=== PATIENT | male | born 1985 ===

== ENCOUNTER 2018-06-21 02:11 | Inpatient (IN) | payer OTHER ==
[2018-06-21 02:15] VITALS: BMI 31.1
--- NOTE | 2018-06-21 02:26 | ED PDOC ---
Arrival/HPI - General Time Seen by Provider: 06/21/18 02:18 Historian: Patient - History of Present Illness Narrative History of Present Illness (Text): 06/21/18 02:25 Jorden Devine is a 32 year old male, with no significant past medical history, who presents to the emergency department complaining of right-sided chest pain. Patient states he has been experiencing pinching right-sided chest pain tonight, worsened with deep inspiration and movement. Patient denies any fever, chills, shortness of breath, abdominal pain, nausea, vomiting, diarrhea, urinary symptoms, back pain, neck pain, headache, dizziness, or any other complaints. Symptom Onset: Gradual Symptom Course: Unchanged Activities at Onset: Light Context: Home Past Medical History - Provider Review Nursing Documentation Reviewed: Yes Family/Social History - Physician Review Nursing Documentation Reviewed: Yes Family/Social History: Unknown Family HX Allergies/Home Meds Allergies/Adverse Reactions: Allergies No Known Allergies Allergy (Verified 06/21/18 02:15) Home Medications: Home Meds Medication Instructions Recorded Confirmed RX: No Known Home Med 06/21/18 06/21/18 Review of Systems - Physician Review All systems were reviewed & negative as marked: Yes - Review of Systems Constitutional: Normal. absent: Fevers Eyes: Normal ENT: Normal Respiratory: Normal. absent: SOB, Cough Cardiovascular: Chest Pain Gastrointestinal: Normal. absent: Abdominal Pain, Diarrhea, Nausea, Vomiting Genitourinary Male: Normal. absent: Dysuria, Frequency, Hematuria, Urinary Output Changes Musculoskeletal: Normal. absent: Back Pain, Neck Pain Skin: Normal. absent: Rash Neurological: Normal. absent: Headache, Dizziness Endocrine: Normal Hemo/Lymphatic: Normal Psychiatric: Normal Physical Exam Vital Signs Reviewed: Yes Temperature: Afebrile Blood Pressure: Normal Pulse: Regular Respiratory Rate: Normal Appearance: Positive for: Well-Appearing, Non-Toxic, Comfortable Pain Distress: None Mental Status: Positive for: Alert and Oriented X 3 - Systems Exam Head: Present: Atraumatic, Normocephalic Pupils: Present: PERRL Extroacular Muscles: Present: EOMI Conjunctiva: Present: Normal Mouth: Present: Moist Mucous Membranes Neck: Present: Normal Range of Motion Respiratory/Chest: Present: Clear to Auscultation, Good Air Exchange. No: Respiratory Distress, Accessory Muscle Use Cardiovascular: Present: Regular Rate and Rhythm, Normal S1, S2. No: Murmurs Abdomen: No: Tenderness, Distention, Peritoneal Signs Back: Present: Normal Inspection Upper Extremity: Present: Normal Inspection. No: Cyanosis, Edema Lower Extremity: Present: Normal Inspection. No: Edema Neurological: Present: GCS=15, CN II-XII Intact, Speech Normal Skin: Present: Warm, Dry, Normal Color. No: Rashes Psychiatric: Present: Alert, Oriented x 3, Normal Insight, Normal Concentration Medical Decision Making ED Course and Treatment: 06/21/18 02:26 Impression: 32 year old male complaining of right-sided chest pain tonight. Plan: -- EKG -- Chest X-Ray -- Labs, cardiac enzymes -- Urinalysis -- Reassess and disposition Progress Notes: Reviewed EKG, NSR at [address]-segment elevations or depressions, no T-wave inversions, normal intervals. 06/21/18 03:00 Chest X-Ray reviewed, shows no acute processes. 06/21/18 05:00 Labs reviewed, D-dimer: 388. CTA Chest ordered. 06/21/18 07:05 PROCEDURE: CTA OF THE CHEST WITH IV CONTRAST SIGNED ON: 06/21/18 06:39:29AM LIZZY ROBLES M.D. IMPRESSION: No demonstrated pulmonary embolism or arterial dissection. Minimal right pleural effusion. Airspace disease in the right lower lobe. Subsegmental atelectasis and/or developing pneumonia. Look to patient presentation, such as presence or absence of fever and leukoycytosis for confirmation of which is more likely in this particular patient presently, recognizing that both conditions occasionally exist at the same time. [facility]acia will obs for pneumonia - Lab Interpretations I have reviewed the lab results: Yes - RAD Interpretation Etymology Professor: ED Physician - EKG Interpretation Interpreted by ED Physician: Yes Type: 12 lead EKG - Scribe Statement The provider has reviewed the documentation as recorded by the Emaniibcory Sweeney Provider Scribe Attestation: All medical record entries made by the Scribe were at my direction and personally dictated by me. I have reviewed the chart and agree that the record accurately reflects my personal performance of the history, physical exam, medical decision making, and the department course for this patient. I have also personally directed, reviewed, and agree with the discharge instructions and disposition. Disposition/Present on Arrival - Present on Arrival Any Indicators Present on Arrival: No - Disposition Have Diagnosis and Disposition been Completed?: Yes Diagnosis: Pneumonia Disposition: HOSPITALIZED Disposition Time: 06:50 Condition: GOOD
[2018-06-21 03:27] LABS: ALB/GLOB RATIO 1.2 (1.1-1.8); ALBUMIN 4.2 g/dL (3.0-4.8); BASO # 0.02 K/mm3 (0.0-2.0); BASO % 0.2 % (0.0-3.0); BLOOD UREA NITROGEN 13 mg/dL (7-21); CALCIUM 9.1 mg/dL (8.4-10.5); EOS # 0.3 (0.0-0.7); EOS % 2.4 % (1.5-5.0); GFR NON-AFRICAN AMERICAN > 60; GRAN # 6.5 (1.4-6.5); GRAN % 54.2 % (50.0-68.0); HEMOGLOBIN 14.4 g/dL (14.0-18.0); LYMPH # 4.4 (1.2-3.4); LYMPH % 36.4 % (22.0-35.0); MEAN CELL VOLUME 86.5 fl (80.0-105.0); MEAN CORPUSCULAR HEMOGLOBIN 29.8 pg (25.0-35.0); MEAN CORPUSCULAR HGB CONC 34.4 g/dl (31.0-37.0); MEAN PLATELET VOLUME 9.5 fl (7.0-11.0); MONO # 0.8 (0.1-0.6); MONO % 6.8 % (1.0-6.0); RBC 4.83 10^6/uL (3.5-6.1); RED CELL DISTRIBUTION WIDTH 12.8 % (11.5-14.5)
[2018-06-21 03:32] LABS: ALT/SGPT 46 U/L (7-56); AST/SGOT 28 U/L (17-59)
[2018-06-21 03:59] LABS: TROPONIN I < 0.01 ng/mL
[2018-06-21] MEDS ORDERED: Morphine 2 mg/ml ISec IVP STA (05:02)
[2018-06-21] MEDS ORDERED: Iodixanol 320 MG/ML 100 ML BOTTLE IV ONE (05:08)
[2018-06-21 05:14] LABS: PH,URINE 6.5 (4.7-8.0); URINE BILIRUBIN NEGATIVE (NEGATIVE); URINE BLOOD NEGATIVE (NEGATIVE); URINE GLUCOSE (UA) NEGATIVE (NEGATIVE); URINE LEUKOCYTE ESTERASE NEGATIVE Leu/uL (NEGATIVE); URINE PROTEIN NEGATIVE mg/dL (<30 mg/dL); URINE UROBILINOGEN 0.2 E.U./dL (<1 E.U./dL)
[2018-06-21 05:23] LABS: URINE APPEARANCE CLEAR (CLEAR); URINE COLOR YELLOW (YELLOW)
[2018-06-21] MEDS ORDERED: levoFLOXacin 750 mg in D5W 750 MG/150 ML BAG IVPB STA (06:58)
[2018-06-21] MEDS ORDERED: Sodium Chloride 0.9% 1,000 ML IV STA (07:00)
--- NOTE | 2018-06-21 08:48 | RAD ---
HISTORY: sob COMPARISON: No prior. TECHNIQUE: Chest, one view. FINDINGS: LUNGS: No focal consolidation. Please note that chest x-ray has limited sensitivity for the detection of pulmonary masses. PLEURA: No significant pleural effusion identified. No definite pneumothorax . CARDIOVASCULAR: Heart size appears within normal limits. OSSEOUS STRUCTURES: No acute osseous abnormality identified. VISUALIZED UPPER ABDOMEN: Unremarkable. OTHER FINDINGS: None. IMPRESSION: No focal consolidation, significant pleural effusion, or definite pneumothorax identified.
--- NOTE | 2018-06-21 09:00 | CT ---
Date of service: 06/21/2018 PROCEDURE: CT Chest with contrast (Pulmonary Angiogram) HISTORY: chest pain COMPARISON: None available. TECHNIQUE: Axial computed tomography images were obtained of the chest in the pulmonary arterial phase of enhancement. Coronal and sagittal reformatted images were created and reviewed. Intravenous contrast dose: Visipaque 320, 100 cc Radiation dose: Total exam DLP = 579.51 mGy-cm. This CT exam was performed using one or more of the following dose reduction techniques: Automated exposure control, adjustment of the mA and/or kV according to patient size, and/or use of iterative reconstruction technique. FINDINGS: Patient is interval to raise his arms above his head resulting in greater artifact through the chest including the pulmonary arteries. PULMONARY ARTERIES: No definitive pulmonary embolus is appreciated. AORTA: No acute findings. No thoracic aortic aneurysm. LUNGS: Limited bilateral basilar dependent atelectasis. No alveolitis or discrete mass including central airways. PLEURAL SPACES: Unremarkable. No effusion or pneumothorax. HEART: Trace residual thymic tissue is seen in the anterior mediastinal fat. No cardiomegaly. No significant pericardial effusion. LYMPH NODES: No lymphadenopathy. BONES, CHEST WALL: Unremarkable. No fracture or destructive lesion OTHER FINDINGS: Unremarkable. IMPRESSION: Unremarkable CT pulmonary angiogram. No pulmonary embolus. Limited bilateral basilar dependent atelectasis with remainder of the examination appearing unremarkable. Concordant preliminary report from [facility], 06/21/2018.
[2018-06-21] MEDS: Albuterol-Ipratrop 3 mg / 0.5 (3 ml) UD IH SCH ×2 (13:18→19:45)
--- NOTE | 2018-06-21 13:58 | CARD ---
APPROVED REPORT Date of service: 06/21/2018 EKG Measurement Heart [id number] <Conclusion> Normal sinus rhythm RVCD Normal ECG
[2018-06-22] MEDS: Albuterol-Ipratrop 3 mg / 0.5 (3 ml) UD IH SCH ×4 (01:56→20:58)
--- NOTE | 2018-06-22 02:16 | CON ---
DATE: 06/21/2018 PULMONARY CONSULT REFERRING PHYSICIAN: Lorri Beyer MD REASON FOR CONSULTATION: Right-sided pleuritic pain with shortness of breath. HISTORY OF PRESENT ILLNESS: This is a 32-year-old gentleman without any significant past medical history, [place], also drives [employer], comes into emergency room with right-sided pleuritic pain with some shortness of breath. No nausea, no vomiting, no diarrhea. No leg pain or leg swelling. PAST MEDICAL HISTORY: There is no cardiopulmonary disease. ALLERGIES: NONE KNOWN. FAMILY HISTORY: No significant cardiopulmonary disease reported. SOCIAL HISTORY: Denies smoking or alcohol use. MEDICATIONS: He is on DuoNeb every 6 hours, Levaquin 500 mg daily, Pepcid 40 mg daily, Tylenol p.r.n. basis, did receive Levaquin 750 mg in the ER and also morphine 2 mg dose was given. REVIEW OF SYSTEMS: No headache, no rhinitis. Admits to have snoring, daytime sleepy at times. Has right-sided pleuritic pain. Also right upper quadrant some discomfort. No nausea, no vomiting, no diarrhea. No leg pain or leg swelling. PHYSICAL EXAMINATION: GENERAL: In no acute distress. VITAL SIGNS: Temperature is 98, heart rate is 87, respiratory rate is 18, blood pressure 121/74, pulse ox 100% on room air. HEENT: Moist mucous membrane. Crowded airway. Mallampati score is 4. NECK: Supple. No JVD. LUNGS: Have a decreased breath sounds in the right base. HEART: S1, S2. ABDOMEN: Soft, nontender, no organomegaly. EXTREMITIES: No edema. NEUROLOGIC: Awake, alert. Follows simple commands. LABORATORY DATA: Shows hemoglobin 14.4, hematocrit 41.8, WBC 12, platelet is 227. D-dimer was 388. Sodium 144, potassium 3.9, chloride 104, bicarbonate 28, BUN 13, creatinine 0.8, glucose 102, calcium 9.1, magnesium 2. AST 28, ALT 46, alkaline phosphatase is 82. Troponin less than 0.01. Albumin is 4.2. Urinalysis is unremarkable. Had a CAT scan of the chest done in ER showing unremarkable CT pulmonary angiogram. No pulmonary embolus. Limited bilateral pacer, dependent atelectasis where the remainder of the examination appearing unremarkable. Also had EKG done, which showed sinus rhythm at the rate of 75. IMPRESSION AND PLAN: Right lower lobe something happening, atelectasis/pneumonia or pulmonary embolism, though CTA is negative. D-dimer is high. 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 We will get ventilation/perfusion scan. We will get venous Doppler of lower extremity and also order a procalcitonin for the morning. Continue present care. Thank you and we will follow with you. Darby Brizuela MD
[2018-06-22 07:26] LABS: IRON 89 ug/dL (45-180)
[2018-06-22 07:36] LABS: % IRON SATURATION 30 % (20-55); TOTAL IRON BINDING CAPACITY 299 ug/dL (261-462)
[2018-06-22] MEDS: levoFLOXacin 500 mg in D5W 500 MG/100 ML BAG IVPB SCH (09:52)
--- NOTE | 2018-06-22 11:28 | HP ---
Patient was seen and examined on the bedside on 06/21/2018 in his room. CHIEF COMPLAINT: Right-sided chest pain. HISTORY OF PRESENT ILLNESS: Mr. Jorden Devine is a 32-year-old my private patient, no significant past medical history, came to the emergency room complaining of right-sided chest pain. Patient states that he has been experiencing pinching right-sided chest pain throughout night, worsened with deep inspiration and movement. Patient denies any fever or chills. No nausea or vomiting. No headache. No back pain. No hematuria or hematochezia. PAST MEDICAL HISTORY: Nonsignificant. ALLERGIES: THE PATIENT IS NOT ALLERGIC WITH ANY MEDICATIONS. HOME MEDICATIONS: Refused. REVIEW OF SYSTEMS: Patient was seen and examined on the bedside, just having right-sided chest pain. No fever. No chills, nausea, vomiting, or diarrhea. No hematuria. No headache. No dizziness. PHYSICAL EXAMINATION: VITAL SIGNS: Temperature 98.2, pulse 73, blood pressure 110/57, respiratory rate 20. HEENT: Head: Normocephalic, atraumatic. Eyes: PERRLA. Extraocular muscles intact. Conjunctivae clear. Nose patent. Mucous membrane moist. NECK: Supple. No carotid bruit. No JVD or thyromegaly. CHEST: Bilaterally symmetrical. HEART: S1 and S2 positive. LUNGS: Poor air entry. ABDOMEN: Soft. Bowel sounds present. No organomegaly. Tender in the right upper quadrant. Bowel sounds positive. EXTREMITIES: No edema. No cyanosis. NEUROLOGIC: Patient is awake and alert. Follows simple commands. LABORATORY DATA: White blood cells 12, hemoglobin 14.4, hematocrit 41.8, platelets 227. Sodium 140, potassium 3.9, BUN 13, creatinine 0.8, glucose 102. ASSESSMENT AND PLAN: Mr. Jorden Devine is a 32-year-old male with leukocytosis. Urine is negative for infection. Did CAT scan of the chest. Came with shortness of breath and pleuritic chest pain. Unremarkable CAT scan, pulmonary angiogram, no pulmonary embolism, limited bibasilar dependent atelectasis where the remainder of the examination appearing unremarkable. Chest x-ray was reviewed by me. The patient is admitted for bronchitis/pneumonia. No demonstratable embolism or arterial dissection. Minimal right pleural effusion, diffuse in right lower lobe, subsequently atelectasis and/or documented pneumonia, airspace disease in the right lower lobe , We admitted the patient. Pulmonary consult called. Started on intravenous antibiotics. Gastric and deep venous thrombosis prophylaxes. Repeat labs. We will follow up. Lorri Beyer MD MTDD
[2018-06-22 13:00] LABS: FOLATE 16.8 ng/mL
--- NOTE | 2018-06-22 13:22 | NM ---
Date of service: 06/22/2018 COMPARISON: June 21, 2018. CT pulmonary angiogram. TECHNIQUE: 33.1 mCi technetium 99-m DTPA aerosol. 4.2 mCI technetium 99-m MAA administered intravenously. FINDINGS: VENTILATION COMPONENT: Normal.Retention of radionuclide in the tracheobronchial tree and ingestion of radionuclide in the stomach, incidental findings PERFUSION COMPONENT: Heterogeneous distribution of radionuclide. No geographic, segmental, lobar abnormalities apparent on the present examination. IMPRESSION: Lowsign probability ventilation perfusion scan for pulmonary embolism.
[2018-06-22] MEDS: Naproxen 550 mg Tab PO SCH (22:17)
--- NOTE | 2018-06-22 23:05 | PN ---
DATE: 06/22/2018 PULMONARY PROGRESS NOTE REFERRING PHYSICIAN: Lorri Beyer MD SUBJECTIVE: He is lying in the bed with head at 45 degrees. Still has a right-sided pleuritic pain, which is 50% better than yesterday, gets short of breath when exert. No nausea, no vomiting, no diarrhea. No leg pain or leg swelling. OBJECTIVE: GENERAL: In no distress. VITAL SIGNS: Temperature is 98, heart rate is 78, respiratory rate is 18, blood pressure 120/70, pulse ox 97% on room air. HEENT: Moist mucous membrane. Crowded airway. Mallampati score is 4. NECK: Supple. No JVD. LUNGS: Have decreased breath sounds at the bases. HEART: S1 and S2. ABDOMEN: Soft, nontender. No organomegaly. EXTREMITIES: No edema. NEUROLOGIC: Awake, alert. Follows simple commands. MEDICATIONS: He is on albuterol/Atrovent nebulizer every 6 hours, Levaquin 500 mg daily, Pepcid 40 mg daily, Tylenol p.r.n. basis. LABORATORY DATA: Shows yesterday leukocyte count was 12, hemoglobin A1c 5.3, iron is 89. Urine is unremarkable. Blood culture, there is no growth. V/Q scan done today, which shows perfusion part heterogeneous distribution of the radionuclide. Otherwise, no other segmental lobar abnormality noted. So, it was low probability for pulmonary embolism. Venous Doppler study done, results are pending. IMPRESSION AND PLAN: Right-sided pleuritic pain, splinting, has a basilar atelectasis. No sign of pulmonary embolism. Does not look like a pneumonia either. Could have some pleurisy in that area with small infiltrate? clinically is better with continue antibiotics, continue Tylenol, gastric prophylaxis, deep venous thrombosis prophylaxis, out of bed to chair. We will repeat procalcitonin for the morning. Thank you and we will follow with you. Darby Brizuela MD
[2018-06-23] MEDS: Albuterol-Ipratrop 3 mg / 0.5 (3 ml) UD IH SCH ×4 (01:19→21:30)
--- NOTE | 2018-06-23 04:54 | PN ---
DATE: 06/22/2018 SUBJECTIVE: The patient is 32-year-old male. The patient was seen and examined at the bedside on 06/22/2018, looking comfortable. No nausea, vomiting, diarrhea. No hematuria, no hematochezia. No swelling of the leg. No chest pain, no palpitation. Cough is getting better, shortness of breath is getting better, especially chest pain with the inspiration is better. PHYSICAL EXAMINATION: VITAL SIGNS: Temperature 99.2, pulse 81, blood pressure 115/69, respiratory rate 18. HEENT: Head: Normocephalic, atraumatic. Eyes: PERRLA. Extraocular muscles intact. Conjunctivae clear. Nose patent. Mucous membrane moist. NECK: Supple. No carotid bruit. No JVD or thyromegaly. CHEST: Bilaterally symmetrical. HEART: S1, S2 positive. LUNGS: Clear to auscultation. ABDOMEN: Soft. Bowel sounds present. No organomegaly. EXTREMITIES: No edema, no cyanosis. NEUROLOGICAL: The patient is awake, alert, follows simple commands. MEDICATIONS: Naproxen, levofloxacin, Pepcid, Tylenol, DuoNeb. LABORATORY DATA: We do not have CBC today. Hemoglobin A1c is 5.3, iron 89, iron saturation 30, triglycerides 149, B12 of 556, HDL 39, LDL 107. ASSESSMENT AND PLAN: Mr. Jorden Devine is a 32-year-old male with leukocytosis, came with chest pain and shortness of breath, admitted with right lower lobe bronchitis/pneumonia/atelectasis, who had pulmonary emboli. CT scan was negative. D-dimer is high. The patient had just went back from vacation from [place]. Past history of diabetes, ventilation-perfusion scan, did ultrasound of the lower extremities. Lung scan is negative. Lower extremity ultrasound results are pending. Getting antibiotics. Dr. Brizuela gave naproxen. Getting albuterol, levofloxacin, Pepcid and Tylenol. Pain is better. Discussion done with the patient and the patient's brother sitting on the bedside. Gastric and deep venous thrombosis prophylaxes. Repeat labs. We will follow. Lorri Beyer MD
[2018-06-23 08:54] LABS: HEMOGLOBIN 15.2 g/dL (14.0-18.0); MEAN CELL VOLUME 87.4 fl (80.0-105.0); MEAN CORPUSCULAR HEMOGLOBIN 29.6 pg (25.0-35.0); MEAN CORPUSCULAR HGB CONC 33.9 g/dl (31.0-37.0); MEAN PLATELET VOLUME 9.2 fl (7.0-11.0); RBC 5.14 10^6/uL (3.5-6.1); RED CELL DISTRIBUTION WIDTH 12.8 % (11.5-14.5); WHITE BLOOD COUNT 9.4 10^3/ul (4.5-11.0)
[2018-06-23] MEDS: Naproxen 550 mg Tab PO SCH ×2 (09:05→17:35)
[2018-06-23] MEDS: levoFLOXacin 500 mg in D5W 500 MG/100 ML BAG IVPB SCH (09:05)
[2018-06-23 09:18] LABS: BLOOD UREA NITROGEN 13 mg/dL (7-21); CALCIUM 9.4 mg/dL (8.4-10.5); GFR NON-AFRICAN AMERICAN > 60
--- NOTE | 2018-06-23 21:09 | PN ---
DATE: 06/23/2018 REFERRING PHYSICIAN: Lorri Beyer MD SUBJECTIVE: The patient is lying in the bed, head at 45 degrees. Night was unremarkable, feels much better, still has some right-sided pleuritic pain. No nausea, vomiting, diarrhea, leg pain or leg swelling. OBJECTIVE: GENERAL: No acute distress. VITAL SIGNS: Temperature is 98, heart rate 77, respiratory rate is 18, blood pressure 97/65, pulse ox 97% on room air. HEENT: Moist mucous membranes. NECK: Supple. No JVD. LUNGS: Have a fair airflow with rhonchi. HEART: S1,S2. ABDOMEN: Soft, nontender, no organomegaly. EXTREMITIES: No edema. NEUROLOGIC: Awake, alert, follows simple command. MEDICATIONS: He is on naproxen double-strength 550 mg twice a day, DuoNeb every 6 hours, Levaquin 500 mg daily, Pepcid 40 mg daily, Tylenol p.r.n. basis. LABORATORY DATA: Shows hemoglobin 15.2, hematocrit 44.9, WBC 9.4, platelet is 230. Sodium 142, potassium 4.4, chloride 103, bicarbonate 29, BUN 13, creatinine 0.9, glucose is 92, hemoglobin A1c 5.3, calcium is 9.4, procalcitonin less than 0.05. IMPRESSION: Right-sided pleuritic pain splinting with atelectasis, leukocytosis, probably have pneumonia though procalcitonin is negative. Pulmonary embolus workup is unremarkable. Feels better since on antibiotics and leukocytosis improved. We will continue Naprosyn, p.r.n. Tylenol. Continue antibiotics. Discharge planning. Thank you and we will follow with you. Darby Brizuela MD
--- NOTE | 2018-06-24 00:30 | PN ---
DATE: 06/23/2018 SUBJECTIVE: The patient is a 32-year-old male. The patient was seen and examined on the bedside on 06/23/2018, using a nebulizer treatment. According to him, he is feeling better. No nausea, vomiting or diarrhea. No hematuria or hematochezia. No swelling of the leg. Chest pain is better with breathing. No fever, no chills. PHYSICAL EXAMINATION VITAL SIGNS: Temperature 98, pulse 77, blood pressure 97/55, respiratory rate 18. HEENT: Head normocephalic, atraumatic. Eyes: PERRLA. Extraocular muscles intact. Conjunctivae clear. Nose patent. Mucous membrane moist. NECK: Supple. No carotid bruit. No JVD or thyromegaly. CHEST: Bilaterally symmetrical. HEART: S1 and S2 positive. LUNGS: Clear to auscultation. ABDOMEN: Soft. Bowel sounds positive. No organomegaly. EXTREMITIES: No edema. No cyanosis. NEUROLOGICAL: The patient is awake and alert. Moving all 4 extremities. No focal deficits. MEDICATIONS: Naproxen, DuoNeb, Levaquin, Pepcid, Tylenol. LABORATORY DATA: White blood cell 9.4, hemoglobin 15.2, hematocrit 44.9, platelets 230. Sodium 142, potassium 4.4, BUN 15, creatinine 0.9, glucose 92. ASSESSMENT AND PLAN: Mr. Jorden Devine is my private patient with leukocytosis with nonsignificant past medical history, recently has traveled back home, came with right-sided pleuritic pain, splinting, has basilar atelectasis. No signs of pulmonary embolism. Does not look like pneumonia either. Could have some pleurisy in the area with small infiltrate, clinically is better. Continue antibiotics, continue Tylenol. Gastric prophylaxis, deep vein thrombosis prophylaxis, out of bed to chair, physical therapy. Appreciated Dr. Brizuela's input. Repeat labs. We will follow up. Lorri Beyer MD
[2018-06-24] MEDS: Albuterol-Ipratrop 3 mg / 0.5 (3 ml) UD IH SCH ×4 (02:43→20:29)
[2018-06-24] MEDS: levoFLOXacin 500 mg in D5W 500 MG/100 ML BAG IVPB SCH (11:33)
[2018-06-24] MEDS: Naproxen 550 mg Tab PO SCH ×2 (11:33→17:08)
--- NOTE | 2018-06-24 16:31 | US ---
HISTORY: Leg pain and swelling. Evaluate for DVT PHYSICIAN(S): Max Santoro MD. TECHNIQUE: Duplex sonography and color-flow Doppler with graded compression were used to evaluate the deep venous systems of both lower extremities. FINDINGS: The visualized deep venous systems of both lower extremities are sonographically normal and compressible. Normal wave forms and augmentation are seen. There is no sonographic evidence for deep venous thrombosis in the visualized segments of both lower extremities. IMPRESSION: No sonographic evidence for deep venous thrombosis in the visualized segments of both lower extremities.
--- NOTE | 2018-06-24 18:12 | PN ---
DATE: 06/24/2018 PULMONARY PROGRESS NOTE REFERRING PHYSICIAN: Lorri Beyer MD SUBJECTIVE: He is lying in the bed at 45 degree. Night was unremarkable. Still has a right mild pleuritic pain. No fever, no shortness of breath. No leg pain or leg swelling. PHYSICAL EXAMINATION GENERAL: In no acute distress. VITAL SIGNS: Temperature is 98, heart rate 76, respiratory rate is 20, blood pressure 104/62, pulse ox 97% on room air. HEENT: Moist mucous membrane. Crowded airway. Mallampati score is IV. NECK: Supple. No JVD. LUNGS: Have a fair airflow with rhonchi. HEART: S1 and S2. ABDOMEN: Soft, nontender, no organomegaly. EXTREMITIES: No edema. NEUROLOGIC: Awake, alert, follows simple command. MEDICATIONS: He is on Naprosyn 550 mg twice a day, DuoNeb every 6 hours, Levaquin 500 mg daily, Pepcid 40 mg daily, Tylenol p.r.n. basis. LABORATORY DATA: Reviewed and noted. No new lab is available. Microbiology; blood culture has been negative. IMPRESSION AND PLAN: Right-sided pleuritic pain with splinting, atelectasis, leukocytosis, probably have pneumonia, though procalcitonin was negative. Clinically, he is much better, on Naprosyn antibiotics and Pepcid. May discharge him on Levaquin for another 3 days, p.r.n. Naprosyn for 3-4 days. Also, need other pulmonary workup including PFT. Follow up with Dr. Beyer as outpatient. Thank you and we will follow. Darby Brizuela MD
--- NOTE | 2018-06-24 23:07 | PN ---
DATE: 06/24/2018 SUBJECTIVE: The patient was seen and examined on bedside on 06/24/2018. Progress notes are for 06/24/2018. Looking comfortable. Pain is minimum. Night was unremarkable. Only having pleuritic pain with deep breathing. No fever. No chills. No nausea, vomiting, diarrhea. No hematuria or hematochezia. No swelling of the leg. PHYSICAL EXAMINATION: VITAL SIGNS: Temperature 98, heart rate 73, respiratory rate 20, blood pressure 104/64, pulse oximetry 97% on room air. HEENT: Head normocephalic, atraumatic. Eyes PERRLA. Extraocular muscles intact. Conjunctivae clear. Nose patent. Mucous membrane moist. NECK: Supple. No carotid bruit. No JVD or thyromegaly. CHEST: Bilaterally symmetrical. HEART: S1 and S2 positive. LUNGS: Clear to auscultation. ABDOMEN: Soft. Bowel sounds positive. No organomegaly. EXTREMITIES: No edema. No cyanosis. NEUROLOGICAL: The patient is awake and alert. Moving all 4 extremities. No focal deficits. MEDICATIONS: Naproxen, DuoNeb, Levaquin, Pepcid, Tylenol. LABORATORY DATA: We do not have recent labs. ASSESSMENT AND PLAN: Mr. Jorden Devine, 32-year-old male with right-sided pleuritic pain with splinting, atelectasis, leukocytosis, probably has pneumonia, though prolactin was negative clinically. He is much better on naproxen and antibiotics, Pepcid for gastrointestinal prophylaxis. The patient needs more Levaquin. Continue present treatment. Discussion done with the patient. Need as outpatient pulmonary function test. We will follow up. Lorri Beyer MD
[2018-06-25] MEDS: Albuterol-Ipratrop 3 mg / 0.5 (3 ml) UD IH SCH ×4 (05:10→21:09)
[2018-06-25] MEDS: Naproxen 550 mg Tab PO SCH ×2 (11:05→17:51)
[2018-06-25] MEDS: levoFLOXacin 500 mg in D5W 500 MG/100 ML BAG IVPB SCH (11:05)
--- NOTE | 2018-06-26 01:42 | PN ---
DATE: 06/25/2018 PULMONARY PROGRESS NOTE REFERRING PHYSICIAN: Lorri Beyer MD. SUBJECTIVE: He is lying in the bed, head at 45 degrees. Night was unremarkable. Feels better. Decreased cough and pleuritic pain. No nausea, vomiting, diarrhea, leg pain or leg swelling. OBJECTIVE: GENERAL: In no acute distress. VITAL SIGNS: Temperature is 98, heart rate is 78, respiratory rate is 20, blood pressure 114/68, pulse ox 99% on room air. HEENT: Moist mucous membrane. Crowded airway. NECK: Supple. No JVD. LUNGS: Have a fair airflow with rhonchi. HEART: S1 and S2. ABDOMEN: Soft, nontender. No organomegaly. EXTREMITIES: There is no edema. NEUROLOGICAL: Awake and alert. Follows simple command. MEDICATIONS: He is on Naprosyn 550 mg twice a day, DuoNeb every 6 hours, Levaquin 500 mg daily, Pepcid 40 mg daily, Tylenol p.r.n. basis. LABORATORY DATA: Shows no new lab is available since yesterday. IMPRESSION AND PLAN: Pleuritic pain with leukocytosis, probably has a basilar infiltrate, rule out sleep apnea syndrome. Pulmonary point of view, doing okay. Continue nonsteroidals antibiotics, outpatient pulmonary function test. Consider outpatient home sleep study. Thank you and we will follow with you. Darby Brizuela MD
--- NOTE | 2018-06-26 02:35 | PN ---
DATE: 06/25/2018 SUBJECTIVE: The patient is a 32-year-old male. The patient was seen and examined on the bedside on 06/25/2018, looking comfortable. No nausea, vomiting, or diarrhea. No hematuria or hematochezia. No headache. No dizziness. No chest pain. No palpitation. Pain with full inspiration is getting better. No fever, no chills. PHYSICAL EXAMINATION: VITAL SIGNS: Temperature 98.5, pulse 78, blood pressure 114/68, pulse oximetry 99%, respiratory rate 12. HEENT: Head normocephalic, atraumatic. Eyes: PERRLA. Extraocular muscles intact. Conjunctivae clear. Nose patent. Mucous membrane moist. NECK: Supple. No carotid bruit. No JVD or thyromegaly. CHEST: Bilaterally symmetrical. HEART: S1 and S2 positive. LUNGS: Clear to auscultation. ABDOMEN: Soft. Bowel sounds positive. No organomegaly. EXTREMITIES: No edema. No cyanosis. NEUROLOGICAL: The patient is awake and alert. Moving all 4 extremities. No focal deficits. MEDICATIONS: Naproxen, albuterol, Levaquin, Pepcid, Tylenol. LABORATORY DATA: We do not have recent labs today, but I reviewed old labs. ASSESSMENT AND PLAN: Mr. Jorden Devine is a 32-year-old male with right-sided pleuritic chest pain with splinting, atelectasis, leukocytosis, probably have pneumonia, though prolactin is negative. He is much better on naproxen, antibiotics, Pepcid. The patient need pulmonary function test, we will do as outpatient. Because the patient traveled before this sickness to other country, I just ordered human immunodeficiency virus and rapid plasma reagin. Repeat labs. We will follow up. Lorri Beyer MD
[2018-06-26] MEDS: Albuterol-Ipratrop 3 mg / 0.5 (3 ml) UD IH SCH ×3 (05:23→14:43)
[2018-06-26 07:59] LABS: HEMOGLOBIN 14.6 g/dL (14.0-18.0); MEAN CELL VOLUME 87.5 fl (80.0-105.0); MEAN CORPUSCULAR HEMOGLOBIN 29.4 pg (25.0-35.0); MEAN CORPUSCULAR HGB CONC 33.6 g/dl (31.0-37.0); MEAN PLATELET VOLUME 9.3 fl (7.0-11.0); RBC 4.97 10^6/uL (3.5-6.1); RED CELL DISTRIBUTION WIDTH 12.7 % (11.5-14.5); WHITE BLOOD COUNT 8.9 10^3/ul (4.5-11.0)
[2018-06-26 08:06] LABS: BLOOD UREA NITROGEN 21 mg/dL (7-21); CALCIUM 9.4 mg/dL (8.4-10.5); GFR NON-AFRICAN AMERICAN > 60
[2018-06-26 08:44] VITALS: BP 109/68; PULSE 94; RESP 20; TEMP 98.4; O2SAT 98
[2018-06-26] MEDS: levoFLOXacin 500 mg in D5W 500 MG/100 ML BAG IVPB SCH (10:12)
[2018-06-26] MEDS: Naproxen 550 mg Tab PO SCH (10:13)
== END 2018-06-26 17:58 | disposition home or self-care (01) | DRG 89 ==
LOC: ED 02:11 → ERH 07:25 → 5RSO 08:53 → OBSVTOIN 06-22 01:02
PROVIDERS: ADMIT Internal Medicine; ATTEND Internal Medicine
PROC: 3E0F7GC Introduction of Other Therapeutic Substance into Respiratory Tract, Via Natural or Artificial Opening (ICD-10-PCS; principal; 2018-06-22)
DX: J18.9 Pneumonia, unspecified organism (principal); J98.11 Atelectasis; E11.9 Type 2 diabetes mellitus without complications; J40 Bronchitis, not specified as acute or chronic